=== PATIENT | female | born 1970 | race Caucasian/White ===

== ENCOUNTER 2017-02-26 19:11 | Emergency (ER) | payer BC ==
[2017-02-26 19:49] VITALS: BP 132/69
--- NOTE | 2017-02-26 20:17 | UC ---
Throat Pain/Nasal Jose M HPI - HPI Summary HPI Summary: Patient has had 2 days of sore throat, tramadol is not relieving the pain. denies fever, or difficulty eating - History of Current Complaint Chief Complaint: UCGeneralIllness Stated Complaint: ST/REDNESS IN THROAT Time Seen by Provider: 02/26/17 20:10 Hx Obtained From: Patient Hx Last Menstrual Period: 03/06/14 ?: No Onset/Duration: Sudden Onset, Lasting Days Severity: Severe Associated Signs & Symptoms: Positive: Dysphagia - Epiglottits Risk Factors Epiglottis Risk Factors: Negative - Allergies/Home Medications Allergies/Adverse Reactions: Allergies Allergy/AdvReac Type Severity Reaction Status Date / Time Aluminum [From Prevnar] Allergy FEVER FOR Verified 02/26/17 19:43 A WEEK AND HARD RASH AT SITE Diphtheria Toxoid Allergy FEVER FOR Verified 02/26/17 19:43 [From Prevnar] A WEEK AND HARD RASH AT SITE Nitrofurantoin Allergy Rash Verified 02/26/17 19:43 [From Macrobid] Pneumococcal Polysaccharides Allergy FEVER FOR Verified 02/26/17 19:43 Conjug A WEEK AND [From Prevnar] HARD RASH AT SITE [place] Allergy Hives Verified 02/26/17 19:43 BEES Allergy SWELLS BAD Uncoded 02/26/17 19:43 Home Medications: Home Medications Bumetanide TAB* [Bumex 1 MG TAB*] 1 mg PO BEDTIME 02/26/17 [History Confirmed ] Lisinopril TAB* [Prinivil TAB*] 10 mg PO BEDTIME 02/26/17 [History Confirmed ] PMH/Surg Hx/FS Hx/Imm Hx Previously Healthy: Yes Endocrine History Of: Denies: Diabetes Cardiovascular History Of: Reports: Hypertension Denies: Cardiac Disorders, Pacemaker/ICD Respiratory History Of: Denies: Asthma GI/ History Of: Reports: Renal Disease - POLYCYSTIC KIDNEY DISEASE Psychological History Of: Reports: Depression - DYSTHYMIA Cancer History Of: Denies: Breast Cancer - Surgical History Surgical History: Yes Surgery Procedure, Year, and Place: endometrial ablation; 199 TMJ(jaw surgery); lt ankle 1993; rt hand carpal tunnel 2000; hysterectomy 06/2014, dental surgery , hernia - Family History Known Family History: Negative: Cardiac Disease, Hypertension - Social History Alcohol Use: None Substance Use Type: None Smoking Status (MU): Never Smoked Tobacco - Immunization History Most Recent Influenza Vaccination: 2012 Most Recent Tetanus Shot: 2008 Most Recent Pneumonia Vaccination: 2008 Review of Systems Constitutional: Negative Skin: Negative Eyes: Negative ENT: Sore Throat Respiratory: Negative Cardiovascular: Negative Gastrointestinal: Negative Genitourinary: Negative Motor: Negative Neurovascular: Negative Musculoskeletal: Negative Neurological: Negative Psychological: Negative All Other Systems Reviewed And Are Negative: Yes Physical Exam Triage Information Reviewed: Yes Appearance: Well-Appearing, Well-Nourished, Pain Distress Vital Signs: Initial Vital Signs Temp 100.1 F 02/26/17 19:44 Pulse 86 02/26/17 19:44 Resp 16 02/26/17 19:44 BP 132/69 02/26/17 19:44 Pulse Ox 100 02/26/17 19:44 Vital Signs Reviewed: Yes Eye Exam: Normal Eyes: Positive: Conjunctiva Clear ENT: Positive: Pharyngeal erythema, TMs normal, Tonsillar exudate Dental Exam: Normal Neck exam: Normal Neck: Positive: Supple, Nontender, No Lymphadenopathy Respiratory Exam: Normal Respiratory: Positive: Chest non-tender, Lungs clear, Normal breath sounds Cardiovascular Exam: Normal Cardiovascular: Positive: RRR, No Murmur, Pulses Normal Abdominal Exam: Normal Abdomen Description: Positive: Nontender, No Organomegaly, Soft Bowel Sounds: Positive: Present Musculoskeletal Exam: Normal Musculoskeletal: Positive: Strength Intact, ROM Intact, No Edema Neurological Exam: Normal Neurological: Positive: Alert, Muscle Tone Normal Psychological Exam: Normal Throat Pain/Nasal Course/Dx - Course Course Of Treatment: hx obtained, exam performed, meds reviewed, treated for pharynigitis as strep was negative. recommend symptomatic relief. - Differential Dx/Diagnosis Differential Diagnosis/HQI/PQRI: Influenza, Laryngitis, Otitis Media, Pharyngitis, Sinusitis, URI Provider Diagnoses: pharyngitis Discharge - Discharge Plan Condition: Stable Disposition: HOME Patient Education Materials: Pharyngitis (ED) Additional Instructions: 1. Increase your fluid intake and get plenty of rest 2. Ibuprofen and tylneol for pain and fever. 3. Follow up with the [facility] to get there recommendation on Enbrel usage with illness.
== END 2017-02-26 20:51 | disposition home or self-care (01) ==
LOC: UCCORT 19:11
DX: J02.9 Acute pharyngitis, unspecified (principal); I10 Essential (primary) hypertension; Q61.3 Polycystic kidney, unspecified; F32.9 Major depressive disorder, single episode, unspecified; Z90.710 Acquired absence of both cervix and uterus; Z88.8 Allergy status to other drugs, medicaments and biological substances; Z88.1 Allergy status to other antibiotic agents; Z91.030 Bee allergy status
CPT/HCPCS: 87651; 99212; G0463